=== PATIENT | female | born 1970 | race Caucasian/White ===

== ENCOUNTER 2016-12-21 19:04 | Observation (INO) | payer OTHER ==
[~2016-12-21] VITALS: Ht 172.7 cm; Wt 91.7 kg
[~2016-12-21 19:04] MED LIST: ADDE20XR PO; BISA5TAB PO; CHOL50006 PO; CIPR500T4 PO; CIPR500T93 PO; ENAL10TA7 PO; IBUP-232 PO; KETO10 PO; LORTA5 PO; PROM25TA5 PO; SYNT112T PO; TAMS0.4C67 PO; ZOFR4TAB3 SL; ZOLO50TA PO
[2016-12-21 19:24] VITALS: BP 104/74; PULSE 119; RESP 16; TEMP 100.7; O2SAT 100
[2016-12-21] MEDS ORDERED: SODIUM CHLOR 0.9% 1000 ML INJ 800 ML IV ONE (19:39)
[2016-12-21] MEDS ORDERED: SODIUM CHLOR 0.9% 1000 ML INJ 1,000 ML IV ONE (19:39)
[2016-12-21] MEDS ORDERED: HYDR12.57 PO (19:40)
[2016-12-21] MEDS ORDERED: LEVO125T4 PO (19:40)
[2016-12-21] MEDS ORDERED: LISI-515 PO (19:40)
[2016-12-21] MEDS ORDERED: ADDE20 PO (19:40)
[2016-12-21] MEDS ORDERED: IBUP200T2 PO (19:40)
[2016-12-21] MEDS ORDERED: ACETAMINOPHEN 325 MG TAB PO ONE (19:45)
--- NOTE | 2016-12-21 19:53 | PD ---
HPI Chief Complaint: Flank/Kidney Pain Time Seen by Provider: 19:32 Travel History International Travel<30 days: No Contact w/Intl Traveler<30days: No Traveled to known affect area: No History of Present Illness HPI 46-year-old female with history of kidney stones, here for evaluation of left flank pain. Patient reports that the symptoms have been intermittent for the last week to 2 weeks. She did have an episode of suprapubic burning with cloudy urine as well as an episode of dark her urine. She has not noted any hematuria. Triage vital signs show that the patient is febrile with tachycardia. Left flank pain is described as burning. Currently the pain is not that bad according to the patient. No history of abdominal surgeries. She feels nauseous but has not vomited. No diarrhea. No cough. PFSH Past Medical History Asthma: Yes (PER PT IT IS MILD) Anxiety: Yes (CHRONIC FATIGUE) Depression: Yes Diminished Hearing: No GERD: Yes Headaches: Yes Hypertension: Yes Immunizations Current: Yes Seizures: No Thyroid Disease: Yes ?: Not Menopausal: Yes : 2 Para: 2 Ovarian Cysts: Yes Past Surgical History Other Surgery: Yes (litotripcy) Social History Alcohol Use: Yes (OCCASIONALLY) Tobacco Use: No Substance Use: No Allergies-Medications (Allergen,Severity, Reaction): Coded Allergies: No Known Allergies (Unverified , 12/21/16) Reported Meds & Prescriptions Reported Meds & Active Scripts Active Reported Ibuprofen 200 Mg Tab 200 Mg PO Q4H PRN Adderall (Amphetamine-Dextroamphetamine) 20 Mg Tab 20 Mg PO DAILY Avoid late evening doses. Space doses at least 4 to 6 hours if more than once/day dosing. Levothyroxine (Levothyroxine Sodium) 125 Mcg Tab 125 Mcg PO DAILY Hydrochlorothiazide 12.5 Mg Cap 12.5 Mg PO DAILY Lisinopril 20 Mg Tab 20 Mg PO DAILY Review of Systems Except as stated in HPI: all other systems reviewed are Neg Physical Exam Narrative GENERAL: Well-developed, well-nourished, comfortable, no acute distress. SKIN: Focused skin assessment warm/diaphoretic. No rash. HEAD: Atraumatic. Normocephalic. EYES: Pupils equal and round. No scleral icterus. No injection or drainage. ENT: Mucous membranes pink and moist. NECK: Trachea midline. No JVD. No nuchal rigidity. CARDIOVASCULAR: Regular rate and rhythm. RESPIRATORY: No accessory muscle use. Clear to auscultation. Breath sounds equal bilaterally. GASTROINTESTINAL: Abdomen soft, non-tender, nondistended. MUSCULOSKELETAL: No obvious deformities. No clubbing. No cyanosis. No edema. Mild left CVA tenderness. No right CVA tenderness. No midline vertebral step- off or tenderness. NEUROLOGICAL: Awake and alert. No obvious cranial nerve deficits. Motor grossly within normal limits. Normal speech. PSYCHIATRIC: Appropriate mood and affect; insight and judgment normal. Data Data Last Documented VS Vital Signs Date Time Temp Pulse Resp B/P Pulse Ox O2 Delivery O2 Flow Rate FiO2 12/21/16 22:23 98.3 93 16 106/60 99 Room Air Orders Complete Blood Count With Diff (12/21/16 19:39) Comprehensive Metabolic Panel (12/21/16 19:39) Beta Hcg (Quant/Titer) (12/21/16 19:39) Prothrombin Time / Inr (Pt) (12/21/16 19:39) Act Partial Throm Time (Ptt) (12/21/16 19:39) Lactic Acid Sepsis Protocol (12/21/16 19:39) Urinalysis - C+S If Indicated (12/21/16 19:39) Blood Culture (12/21/16 19:39) Ecg Monitoring (12/21/16 19:39) Iv Access Insert/Monitor (12/21/16 19:39) Oximetry (12/21/16 19:39) Acetaminophen (Tylenol) (12/21/16 19:45) Ct Abd/Pel W Iv Contrast(Rout) (12/21/16 19:39) Sodium Chlor 0.9% 1000 Ml Inj (Ns 1000 M (12/21/16 19:39) Sodium Chlor 0.9% 1000 Ml Inj (Ns 1000 M (12/21/16 19:39) Ceftriaxone Inj (Rocephin Inj) (12/21/16 20:15) Urine Culture (12/21/16 19:57) Iohexol 350 Inj (Omnipaque 350 Inj) (12/21/16 20:33) Potassium Chloride (Kcl) (12/21/16 21:30) Us Pelvis Comp W Dop Transvag (12/21/16 21:13) Labs Laboratory Tests Test 12/21/16 19:57 White Blood Count 11.3 TH/MM3 Red Blood Count 3.69 MIL/MM3 Hemoglobin 11.2 GM/DL Hematocrit 33.1 % Mean Corpuscular Volume 89.7 FL Mean Corpuscular Hemoglobin 30.3 PG Mean Corpuscular Hemoglobin 33.7 % Concent Red Cell Distribution Width 13.5 % Platelet Count 264 TH/MM3 Mean Platelet Volume 7.5 FL Neutrophils (%) (Auto) 92.1 % Lymphocytes (%) (Auto) 3.6 % Monocytes (%) (Auto) 4.1 % Eosinophils (%) (Auto) 0.1 % Basophils (%) (Auto) 0.1 % Neutrophils # (Auto) 10.4 TH/MM3 Lymphocytes # (Auto) 0.4 TH/MM3 Monocytes # (Auto) 0.5 TH/MM3 Eosinophils # (Auto) 0.0 TH/MM3 Basophils # (Auto) 0.0 TH/MM3 CBC Comment DIFF FINAL Differential Comment Prothrombin Time 11.8 SEC Prothromb Time International 1.1 RATIO Ratio Activated Partial 33.1 SEC Thromboplast Time Urine Color YELLOW Urine Turbidity CLEAR Urine pH 7.0 Urine Specific [place] 1.020 Urine Protein 100 mg/dL Urine Glucose (UA) NEG mg/dL Urine Ketones TRACE mg/dL Urine Occult Blood MOD Urine Nitrite POS Urine Bilirubin NEG Urine Leukocyte Esterase MOD Urine RBC 4-9 /hpf Urine WBC 25-49 /hpf Urine Squamous Epithelial > 8 /hpf Cells Urine Bacteria MOD /hpf Microscopic Urinalysis Comment CATH-CULTURE IND Sodium Level 135 MEQ/L Potassium Level 3.0 MEQ/L Chloride Level 99 MEQ/L Carbon Dioxide Level 24.6 MEQ/L Anion Gap 11 MEQ/L Blood Urea Nitrogen 14 MG/DL Creatinine 1.10 MG/DL Estimat Glomerular Filtration 54 ML/MIN Rate Random Glucose 128 MG/DL Lactic Acid Level 0.8 mmol/L Calcium Level 8.7 MG/DL Total Bilirubin 0.4 MG/DL Aspartate Amino Transf 58 U/L (AST/SGOT) Alanine Aminotransferase 31 U/L (ALT/SGPT) Alkaline Phosphatase 63 U/L Total Protein 7.5 GM/DL Albumin 3.5 GM/DL Human Chorionic Gonadotropin, LESS THAN 1 Quant MIU/ML MDM Medical Decision Making Medical Screen Exam Complete: Yes Emergency Medical Condition: Yes Differential Diagnosis Pyelonephritis, nephrolithiasis, ureterolithiasis, UTI, cystitis, colitis, Narrative Course Initial vital signs show heart rate 119, blood pressure 104/74, pulse ox 100% on room air, oral temp of 100.7F. CBC shows WBC 11.3, hemoglobin 11.2, hematocrit 33.1, platelets 264, neutrophils 92.1%. CMP is remarkable for potassium 3.0 which was replaced orally, creatinine 1.1, GFR 54, otherwise unremarkable. Lactic acid is 0.8. UA is suggestive of UTI. The patient was given a dose of Rocephin. CT abdomen pelvis: CONCLUSION: 1. 7 mm nonobstructing left renal stone. 2. Oval shaped cystic structure within the left adnexa. This likely relates to either an ovarian cyst or perhaps hydrosalpinx. Pelvic sonography could help further differentiate if needed. 3. 1.8 cm right adnexal cyst likely ovarian in nature. 4. Tiny low-density lesion involving the spleen as well as the liver. These are likely benign. Further characterization as an outpatient is suggested utilizing MRI. Patient denies any vaginal discharge. She essentially active with her whom she has been with for the last 15 years. She believes is in a monogamous relationship with her. Pelvic ultrasound ordered to rule out TOA/hydrosalpinx. Pelvic ultrasound: CONCLUSION: 1. Bilateral ovarian cysts. The largest is on the left measuring 3.8 cm. This cyst is somewhat complex as a contains a tiny 3 mm nodule involving the wall. This may simple be a small focus of weak calcification but I cannot exclude a soft tissue nodule. Would suggest a followup ultrasound of the pelvis in 2-3 months to document stability. Patient was made aware of all findings. She was given 2 L of normal saline IV and oral Tylenol. She was also given a dose of IV Rocephin empirically for suspected pyelonephritis. On reassessment the patient is still tachycardic with a heart rate of 107. She is still somewhat diaphoretic. She states she is feeling much better after receiving fluids, however she still looks somewhat ill to me. I told her like to admit her for overnight observation for further treatment and evaluation of pyelonephritis/SIRS. She is amenable to this plan. Case discussed with hospitalist Dr. Horvath who will admit the patient to his service. Diagnosis Primary Impression: Pyelonephritis Additional Impression: SIRS (systemic inflammatory response syndrome) Admitting Information Admitting Physician Requests: Héctor Taylor MD Dec 21, 2016 19:53
[2016-12-21 20:06] VITALS: BP 132/69; PULSE 113; O2SAT 99
[2016-12-21 20:07] VITALS: O2SAT 99
[2016-12-21 20:10] LABS: AUTOMATED NEUTROPHIL # 10.4 TH/MM3 (1.8-7.7); BASOPHIL % 0.1 % (0.0-2.0); EOSINOPHIL % 0.1 % (0.0-4.0); HEMATOCRIT 33.1 % (35.0-46.0); HEMO FLAGS DIFF FINAL; LYMPH % 3.6 % (9.0-44.0); LYMPHOCYTE # 0.4 TH/MM3 (1.0-4.8); MEAN CELL VOLUME 89.7 FL (80.0-100.0); MEAN CORPUSCULAR HEMOGLOBIN 30.3 PG (27.0-34.0); MEAN CORPUSCULAR HGB CONC 33.7 % (32.0-36.0); MONO % 4.1 % (0.0-8.0); NEUT % 92.1 % (16.0-70.0); PLATELET COUNT 264 TH/MM3 (150-450); RED BLOOD COUNT 3.69 MIL/MM3 (4.00-5.30); RED CELL DISTRIBUTION WIDTH 13.5 % (11.6-17.2); WHITE BLOOD COUNT 11.3 TH/MM3 (4.0-11.0)
[2016-12-21 20:12] LABS: GLUCOSE,URINE NEG (NEG); KETONE, URINE TRACE mg/dL (NEG)
[2016-12-21] MEDS ORDERED: cefTRIAXone INJ 1,000 MG in SODIUM CHLORIDE 0.9% INJ 100 ML IV ONE (20:15)
[2016-12-21 20:16] LABS: CHLORIDE 99 MEQ/L (98-107); SODIUM (NA) 135 MEQ/L (136-145)
[2016-12-21 20:19] LABS: BLOOD, URINE MOD (NEG); NITRITE,URINE POS (NEG)
[2016-12-21 20:20] LABS: ANION GAP 11 MEQ/L (5-15); BICARBONATE 24.6 MEQ/L (21.0-32.0); BLOOD UREA NITROGEN 14 MG/DL (7-18)
[2016-12-21 20:21] LABS: APTT (PATIENT) 33.1 SEC (24.3-30.1); INTERNATIONAL NORMALIZED RATIO 1.1 RATIO; PROTHROMBIN TIME - PATIENT 11.8 SEC (9.8-11.6); URINE COLOR YELLOW (YELLW/STRAW)
[2016-12-21 20:22] LABS: BACTERIA, URINE MOD /hpf; COMMENT (UR) CATH-CULTURE IND; CULTURE IF INDICATED CATH CULTURE IND; SQUAMOUS EPITHELIAL CELL URINE > 8 /hpf (0-5)
[2016-12-21 20:23] LABS: ALT (GPT) 31 U/L (10-53); AST (GOT) 58 U/L (15-37); GLOMERULAR FILTRATION RATE 54 ML/MIN (>89)
[2016-12-21 20:24] LABS: TOTAL BILIRUBIN ADULT 0.4 MG/DL (0.2-1.0)
[2016-12-21 20:26] LABS: ALKALINE PHOSPHATASE 63 U/L (45-117)
[2016-12-21 20:28] LABS: BETA HCG QUANT LESS THAN 1 MIU/ML (0-5)
[2016-12-21] MEDS ORDERED: IOHEXOL 350 MG/ML 10 ML VIAL (for RAD DIAG) IV ONE (20:33)
--- NOTE | 2016-12-21 20:50 | RADHPO ---
EXAM DATE/TIME: 12/21/2016 20:24 [facility] COMPARISON: CT ABDOMEN & PELVIS W/O CONTRAST, December 28, 2014, 18:52. INDICATIONS : Intermittent left flank pain with fever. IV CONTRAST: 100 cc Omnipaque 350 (iohexol) IV ORAL CONTRAST: No oral contrast ingested. RADIATION DOSE: 17.30 CTDIvol (mGy) MEDICAL HISTORY : Lupus. Hypertension. Ovarian cysts. SURGICAL HISTORY : None. ENCOUNTER: Initial ACUITY: 2 weeks PAIN SCALE: 8/10 LOCATION: Left flank abdomen TECHNIQUE: Volumetric scanning of the abdomen and pelvis was performed. Using automated exposure control and ad justment of the mA and/or kV according to patient size, radiation dose was kept as low as reasonably achievable to obtain optimal diagnostic quality images. FINDINGS: LOWER LUNGS: The visualized lower lungs are clear. LIVER: There is an 8 mm low-attenuation focus involving the right lobe of the liver. This is within segment 6. The remaining liver is homogeneous. No ductal dilatation. Portal vein is patent. Gallbladder is un remarkable. SPLEEN: There is a 1 cm low-density lesion involving the posterior aspects of the spleen. Remaining spleen is unremarkable. Splenic vein is patent. PANCREAS: Within normal limits. KIDNEYS: Normal in size and shape. There is no mass or hydronephrosis. The there is a 7 mm left renal stone. ADRENAL GLANDS: Within normal limits. VASCULAR: There is no aortic aneurysm. BOWEL/MESENTERY: The stomach, small bowel, and colon demonstrate no acute abnormality. There is no free intraperitone al air or fluid. ABDOMINAL WALL: Within normal limits. RETROPERITONEUM: There is no lymphadenopathy. BLADDER: No wall thickening or mass. REPRODUCTIVE: There is an oval shaped cystic structure within the left adnexa measuring 5 cm in greatest dimension. A 1.8 cm cyst is seen within the right adnexa. No free fluid. INGUINAL: There is no lymphadenopathy or hernia. MUSCULOSKELETAL: Within normal limits for patient age. CONCLUSION: 1. 7 mm nonobstructing left renal stone. 2. Oval shaped cystic structure within the left adnexa. This likely relates to either an ovarian cyst or perhaps hydrosalpinx. Pelvic sonography could help further differentiate if needed. 3. 1.8 cm right adnexal cyst likely ovarian in nature. 4. Tiny low-density lesion involving the spleen as well as the liver. These are likely benign. [facility] characterization as an outpatient is suggested utilizing MRI. Julio Olmstead Jr., MD on December 21, 2016 at 20:42 Board Certified Radiologist. This report was verified electronically.
[2016-12-21 21:27] VITALS: BP 112/64; PULSE 104; TEMP 99.2; O2SAT 99
[2016-12-21] MEDS ORDERED: POTASSIUM CHLORIDE 20 MEQ CONTROLLED RELEASE TAB PO ONE (21:30)
[2016-12-21 22:23] VITALS: BP 106/60; PULSE 93; RESP 16; TEMP 98.3; O2SAT 99
--- NOTE | 2016-12-21 22:35 | RADHPO ---
EXAM DATE/TIME: 12/21/2016 21:54 [facility] COMPARISON: CT ABDOMEN & PELVIS W CONTRAST, December 21, 2016, 20:24. INDICATIONS : Pelvic mass on Cat Scan. MEDICAL HISTORY : Hypertension. Hypothyroidism. Kidney stones. SURGICAL HISTORY : Lithotripsy. Urinary stent. ENCOUNTER: Initial ACUITY: 2 weeks PAIN SCORE: 1/10 LOCATION: Bilateral pelvis MEASUREMENTS: UTERUS: 7.5 x 5.8 x 5.5 cm ENDOMETRIAL STRIPE: 10 mm RIGHT OVARY: 3.1 x 3.1 x 2.0 cm LEFT OVARY: 5.1 x 4.4 x 3.2 cm FINDINGS: UTERUS: The myometrium has homogeneous echotexture without mass. RIGHT OVARY: A 1.3 cm simple cyst is seen involving the right ovary. Arterial waveform identified within the right ovary. LEFT OVARY: There is a large cyst involving the left ovary. It measures 3.8 x 2.5 cm. A small echogenic focus wit hout shadowing is seen involving the more inferior margin of this. An arterial waveform is seen invol ving the ovary. MISCELLANEOUS: No free fluid. CONCLUSION: 1. Bilateral ovarian cysts. The largest is on the left measuring 3.8 cm. This cyst is somewhat comple x as a contains a tiny 3 mm nodule involving the wall. This may simple be a small focus of weak calci fication but I cannot exclude a soft tissue nodule. Would suggest a followup ultrasound of the pelvis in 2-3 months to document stability. Julio Olmstead Jr., MD on December 21, 2016 at 22:30 Board Certified Radiologist. This report was verified electronically.
[2016-12-21] MEDS ORDERED: SODIUM CHLORIDE 0.9% FLUSH 10 ML FLUSH IV FLUSH PRN (23:00)
[2016-12-21] MEDS ORDERED: ONDANSETRON HCL 4 MG/2 ML VIAL IVP PRN (23:00)
[2016-12-21] MEDS ORDERED: TEMAZEPAM 15 MG CAP PO PRN (23:00)
[2016-12-21] MEDS ORDERED: HYDROmorphone HCL PF 1 MG/ML VIAL IV PUSH PRN (23:00)
[2016-12-21] MEDS ORDERED: oxyCODONE/ACETAMINOPHEN 5 MG/325 MG TAB PO PRN (23:00)
[2016-12-21] MEDS ORDERED: ACETAMINOPHEN 325 MG TAB PO PRN (23:00)
[2016-12-21] MEDS ORDERED: NALOXONE HCL 0.4 MG/ML AMP IV PRN (23:00)
[2016-12-21] MEDS ORDERED: MAGNESIUM HYDROXIDE SUSP 30 ML CUP PO PRN (23:00)
[2016-12-21] MEDS: SODIUM CHLOR 0.9% 1000 ML INJ 1,000 ML IV SCH (23:29)
[2016-12-22] VITALS (7 sets, daily range): BP systolic 101–133; BP diastolic 61–83; PULSE 92–111; RESP 14–20; TEMP 97.9–99.1; O2SAT 97–100
[2016-12-22 06:21] LABS: AUTOMATED NEUTROPHIL # 6.7 TH/MM3 (1.8-7.7); BASOPHIL % 0.1 % (0.0-2.0); HEMATOCRIT 31.4 % (35.0-46.0); HEMO FLAGS DIFF FINAL; LYMPH % 4.2 % (9.0-44.0); LYMPHOCYTE # 0.3 TH/MM3 (1.0-4.8); MEAN CELL VOLUME 89.7 FL (80.0-100.0); MEAN CORPUSCULAR HEMOGLOBIN 29.7 PG (27.0-34.0); MEAN CORPUSCULAR HGB CONC 33.1 % (32.0-36.0); MONO % 5.5 % (0.0-8.0); NEUT % 90.2 % (16.0-70.0); PLATELET COUNT 237 TH/MM3 (150-450); RED CELL DISTRIBUTION WIDTH 13.5 % (11.6-17.2); WHITE BLOOD COUNT 7.4 TH/MM3 (4.0-11.0)
[2016-12-22] MEDS ORDERED: LEVOTHYROXINE SODIUM 125 MCG TAB PO SCH (06:30)
[2016-12-22 06:31] LABS: POTASSIUM 3.4 MEQ/L (3.5-5.1)
[2016-12-22 06:33] LABS: BICARBONATE 22.6 MEQ/L (21.0-32.0)
[2016-12-22] MEDS ORDERED: SODIUM CHLORIDE 0.9% FLUSH 10 ML FLUSH IV FLUSH SCH (09:00)
[2016-12-22] MEDS ORDERED: DEXTROAMPHETAMINE/AMPHETAMINE 20 MG TAB PO SCH ×2 (09:00→17:00)
[2016-12-22] MEDS: SODIUM CHLOR 0.9% 1000 ML INJ 1,000 ML IV SCH (09:35)
[2016-12-22] MEDS ORDERED: IBUPROFEN 600 MG TAB PO PRN (13:30)
[2016-12-22] MEDS ORDERED: CEFT500T3 PO (13:46)
--- NOTE | 2016-12-22 13:47 | HHI.DCPOC ---
Discharge Care Plan Diagnosis: (1) Pyelonephritis (2) SIRS (systemic inflammatory response syndrome) Your Health Problems Are: Difficulty with ADL Exercise Tolerance Goals to Promote Your Health * To prevent worsening of your condition and complications * To maintain your health at the optimal level Directions to Meet Your Goals Take your medications as prescribed Follow your dietary instruction Follow activity as directed Keep your appointments as scheduled Take your immunizations and boosters as scheduled If your symptoms worsen call your PCP, if no PCP go to Urgent Care Center or Emergency Room Smoking is Dangerous to Your Health. Avoid second hand smoke Call the 24-hour hour crisis hotline for domestic abuse at Dexter Camacho MD Dec 22, 2016 13:47
[2016-12-22] MEDS ORDERED: NS + KCL 20 MEQ INJ 1,000 ML IV SCH (14:00)
[2016-12-22] MEDS ORDERED: POTASSIUM CHLORIDE 20 MEQ CONTROLLED RELEASE TAB PO ONE (14:00)
--- NOTE | 2016-12-22 14:06 | HHI.HP ---
[facility] Primary Care Physician No Primary Care Physician Admission Diagnosis pyelonephritis, SIRS Diagnoses: Chief Complaint: Left flank pain Travel History International Travel<30 Days: No Contact w/Intl Traveler <30 Da: No Traveled to Known Affected Are: No Sepsis Criteria SIRS Criteria (2 or more): Heart rate over 90 History of Present Illness This is a 46-year-old female with history of kidney stones, depression, asthma, GERD, hypertension and hypothyroidism. She is a nurse practitioner. She presented to the emergency department complaining of moderate intermittent left flank pain which she describes as deep ache. Her symptoms are similar when she had kidney stones in the past and did pass a stone several days ago but pain continued and yesterday had associated fever at102, chills, intermittent cloudy urine, burning upon urination and dark urine x 1. She has not noted any hematuria. She has been started on IV Rocephin and IV hydration and feels much better today and even wants to go home if she continues to improve. She is refusing further IV hydration because she feels she is already retaining fluid Review of Systems Constitutional: COMPLAINS OF: Fever, Chills, DENIES: Diaphoretic episodes, Fatigue, Weight gain, Weight loss, Dizziness, Change in appetite, Night Sweats Endocrine: DENIES: Heat/cold intolerance, Polydipsia, Polyuria, Polyphagia Eyes: DENIES: Blurred vision, Diplopia, Vision loss, Photosensitivity Ears, nose, mouth, throat: DENIES: Tinnitus, Vertigo, Throat pain, Hoarseness, Epistaxis, Odynophagia Respiratory: DENIES: Cough, Wheezing, Hemoptysis, Sputum production, Shortness of breath Cardiovascular: DENIES: Chest pain, Palpitations, Syncope, Dyspnea on Exertion , PND, Lower Extremity Edema, Orthopnea, Claudication Gastrointestinal: COMPLAINS OF: Nausea, DENIES: Abdominal pain, Black stools, Bloody stools, Constipation, Diarrhea, Vomiting, Difficulty Swallowing, Anorexia Genitourinary: COMPLAINS OF: Dysuria, DENIES: Urinary frequency, Urinary incontinence, Urgency, Hematuria, Nocturia, Vaginal discharge Musculoskeletal: COMPLAINS OF: Back pain Integumentary: DENIES: Rash Neurologic: DENIES: Headache, Localized weakness, Seizures, Tremor, Poor Balance Psychiatric: DENIES: Anxiety, Confusion, Depression, Hallucinations, Agitation , Suicidal Ideation, Homicidal Ideation, Delusions Past Family Social History Past Medical History As previously mentioned Past Surgical History Lithotripsy, kidney stents and skin biopsy Reported Medications Ibuprofen 200 Mg Tab 200 Mg PO Q4H PRN Adderall (Amphetamine-Dextroamphetamine) 20 Mg Tab 20 Mg PO DAILY Avoid late evening doses. Space doses at least 4 to 6 hours if more than once/day dosing. Levothyroxine (Levothyroxine Sodium) 125 Mcg Tab 125 Mcg PO DAILY Hydrochlorothiazide 12.5 Mg Cap 12.5 Mg PO DAILY Lisinopril 20 Mg Tab 20 Mg PO DAILY Allergies: Coded Allergies: No Known Allergies (Unverified , 12/21/16) Family History Heart disease Social History Occasional alcohol use. Does not smoke Physical Exam Vital Signs Vital Signs Date Time Temp Pulse Resp B/P Pulse Ox O2 Delivery O2 Flow Rate FiO2 12/22/16 11:23 98.9 96 16 105/64 98 12/22/16 08:56 98.7 92 14 121/61 99 Room Air 12/22/16 06:18 98.9 98 101/61 97 Room Air 12/22/16 02:01 98.0 111 133/82 99 Room Air 12/21/16 22:23 98.3 93 16 106/60 99 Room Air 12/21/16 21:27 99.2 104 112/64 99 Room Air 12/21/16 20:07 99 Room Air 12/21/16 20:06 113 132/69 99 Room Air 12/21/16 19:24 100.7 119 16 104/74 100 Physical Exam GENERAL: This is a well-nourished, well-developed patient, in no apparent distress. SKIN: No rashes, ecchymoses or lesions. Cool and dry. HEAD: Atraumatic. Normocephalic. No temporal or scalp tenderness. EYES: Pupils equal round and reactive. Extraocular motions intact. No scleral icterus. No injection or drainage. ENT: Nose without bleeding, purulent drainage or septal hematoma. Throat without erythema, tonsillar hypertrophy or exudate. Uvula midline. Airway patent. NECK: Trachea midline. No JVD or lymphadenopathy. Supple, nontender, no meningeal signs. CARDIOVASCULAR: Regular rate and rhythm without murmurs, gallops, or rubs. RESPIRATORY: Clear to auscultation. Breath sounds equal bilaterally. No wheezes , rales, or rhonchi. GASTROINTESTINAL: Abdomen soft, non-tender, nondistended. Left CVA tenderness. No guarding. MUSCULOSKELETAL: Extremities without clubbing, cyanosis, or edema. No joint tenderness, effusion, or edema noted. No calf tenderness. Negative Homans sign bilaterally. NEUROLOGICAL: Awake and alert. Cranial nerves II through XII intact. Motor and sensory grossly within normal limits. Five out of 5 muscle strength in all muscle groups. Normal speech. Laboratory Laboratory Tests Test 12/21/16 12/22/16 19:57 06:12 White Blood Count 11.3 7.4 Red Blood Count 3.69 3.50 Hemoglobin 11.2 10.4 Hematocrit 33.1 31.4 Mean Corpuscular Volume 89.7 89.7 Mean Corpuscular Hemoglobin 30.3 29.7 Mean Corpuscular Hemoglobin 33.7 33.1 Concent Red Cell Distribution Width 13.5 13.5 Platelet Count 264 237 Mean Platelet Volume 7.5 7.3 Neutrophils (%) (Auto) 92.1 90.2 Lymphocytes (%) (Auto) 3.6 4.2 Monocytes (%) (Auto) 4.1 5.5 Eosinophils (%) (Auto) 0.1 0.0 Basophils (%) (Auto) 0.1 0.1 Neutrophils # (Auto) 10.4 6.7 Lymphocytes # (Auto) 0.4 0.3 Monocytes # (Auto) 0.5 0.4 Eosinophils # (Auto) 0.0 0.0 Basophils # (Auto) 0.0 0.0 CBC Comment DIFF FINAL DIFF FINAL Differential Comment Prothrombin Time 11.8 Prothromb Time International 1.1 Ratio Activated Partial 33.1 Thromboplast Time Urine Color YELLOW Urine Turbidity CLEAR Urine pH 7.0 Urine Specific [place] 1.020 Urine Protein 100 Urine Glucose (UA) NEG Urine Ketones TRACE Urine Occult Blood MOD Urine Nitrite POS Urine Bilirubin NEG Urine Leukocyte Esterase MOD Urine RBC 4-9 Urine WBC 25-49 Urine Squamous Epithelial > 8 Cells Urine Bacteria MOD Microscopic Urinalysis Comment CATH-CULTURE IND Sodium Level 135 139 Potassium Level 3.0 3.4 Chloride Level 99 106 Carbon Dioxide Level 24.6 22.6 Anion Gap 11 10 Blood Urea Nitrogen 14 9 Creatinine 1.10 0.90 Estimat Glomerular Filtration 54 68 Rate Random Glucose 128 108 Lactic Acid Level 0.8 Calcium Level 8.7 7.9 Total Bilirubin 0.4 Aspartate Amino Transf 58 (AST/SGOT) Alanine Aminotransferase 31 (ALT/SGPT) Alkaline Phosphatase 63 Total Protein 7.5 Albumin 3.5 Human Chorionic Gonadotropin, LESS THAN 1 Quant Date/Time Procedure Status Source Growth 12/21/16 20:03 Aerobic Blood Culture - Preliminary Resulted Blood Peripheral NO GROWTH IN 1 DAY 12/21/16 20:03 Anaerobic Blood Culture - Preliminary Resulted Blood Peripheral NO GROWTH IN 1 DAY 12/21/16 19:57 Urine Culture Received Urine Catheterized Urine Pending Result Diagram: 12/22/16 0612/22/16 0612 Imaging Last Impressions Abdomen/Pelvis/Transvag US 12/21/163 Signed Impressions: Service Date/Time: Wednesday, December 21, 2016 21:54 - CONCLUSION: 1. Bilateral ovarian cysts. The largest is on the left measuring 3.8 cm. This cyst is somewhat complex as a contains a tiny 3 mm nodule involving the wall. This may simple be a small focus of weak calcification but I cannot exclude a soft tissue nodule. Would suggest a followup ultrasound of the pelvis in 2-3 months to document stability. Julio Olmstead Jr., MD Abdomen/Pelvis CT 12/21/161938 Signed Impressions: Service Date/Time: Wednesday, December 21, 2016 20:24 - CONCLUSION: 1. 7 mm nonobstructing left renal stone. 2. Oval shaped cystic structure within the left adnexa. This likely relates to either an ovarian cyst or perhaps hydrosalpinx. Pelvic sonography could help further differentiate if needed. 3. 1.8 cm right adnexal cyst likely ovarian in nature. 4. Tiny low-density lesion involving the spleen as well as the liver. These are likely benign. Further characterization as an outpatient is suggested utilizing MRI. Julio Olmstead Jr., MD Assessment and Plan Problem List: (1) Pyelonephritis ICD Code: N12 Status: Acute Assessment and Plan This a 46-year-old female presenting with left flank pain, dysuria, cloudy urine , fever and chills. Left pyelonephritis with history of kidney stone. Improving clinically with less pain and no fever. Continue IV Rocephin and follow-up cultures negative to date. History of proteus UTI. She was to go home later today if she continues to improve. She is aware the cultures are not back but will follow- up results with PCP. Hypokalemia. Replace and check magnesium and treat accordingly. Dehydration. Improved. Hold her potassium and lisinopril for now Elevated AST with low density lesion in the liver and spleen as seen on CT. Outpatient follow-up Bilateral ovarian cyst. Follow-up imaging in 2-3 months Chronic medical conditions of depression, asthma, GERD, hypertension and hypothyroidism. Continue outpatient medications as appropriate DVT prophylaxis with SCD and early ambulation Discussed Condition With pt and paper tester patient to home Condition on discharge: Improved Regular Diet as tolerated Ad Sugey activity no driving Rx written: Ceftin Follow-up with primary care physician in one week Dexter Camacho MD Dec 22, 2016 14:06
[2016-12-22] MEDS ORDERED: cefTRIAXone INJ 1,000 MG in SODIUM CHLORIDE 0.9% INJ 100 ML IV SCH ×2 (17:00→21:00)
== END 2016-12-22 18:36 | disposition home or self-care (01) ==
LOC: PHED 19:04 → PHEDA 22:56 → PHEDH 12-22 03:44 → PH3B 12-22 11:33
PROVIDERS: ADMIT Family Medicine; ATTEND Family Medicine
DX: N12 Tubulo-interstitial nephritis, not specified as acute or chronic (principal); R65.10 Systemic inflammatory response syndrome (SIRS) of non-infectious origin without acute organ dysfunction; Z87.442 Personal history of urinary calculi; R00.0 Tachycardia, unspecified; R50.9 Fever, unspecified; K21.9 Gastro-esophageal reflux disease without esophagitis; R51 Headache; I10 Essential (primary) hypertension; N20.0 Calculus of kidney; N83.202 Unspecified ovarian cyst, left side; N83.201 Unspecified ovarian cyst, right side; E87.6 Hypokalemia; E86.0 Dehydration; E03.9 Hypothyroidism, unspecified; B96.4 Proteus (mirabilis) (morganii) as the cause of diseases classified elsewhere
CPT/HCPCS: 74177; 76830; 76856; 80048; 80053; 81001; 83605; 83735; 84702; 85025; 85610; 85730; 87040; 87077; 87086; 87186; 93975; 96361; 96365; 99285; G0378; J0696; J7030; Q9967